=== PATIENT | male | born 1995 | race Caucasian/White ===

== ENCOUNTER 2023-09-11 15:53 | Emergency (ER) | payer OTHER, SELFPAY ==
[2023-09-11 16:06] VITALS: BP 108/65; PULSE 77; RESP 16; TEMP 36.1; O2SAT 98
--- NOTE | 2023-09-11 17:04 | ED.GENADULT ---
HPI - General Adult General Chief complaint: Urogenital-Male Stated complaint: Male Urogenital Time Seen by Provider: 09/11/23 16:14 Source: patient and RN notes reviewed Mode of arrival: ambulatory Limitations: no limitations History of Present Illness HPI narrative: Patient presents today complaining of a 2 week history of nausea, vomiting, chills, sweats, abdominal pain, bilateral flank spasms, subjective fever, and urinary frequency. States he is unable to keep down any fluids, but can keep down small amounts of food. Typically vomits 2 or 3 times per day. Patient has vomited 4 times since arrival at [facility]. He has not tried any [id number] medication for symptoms prior to arrival. Patient also presents today requesting treatment for Trichomonas and chlamydia. He has had dysuria and penile discharge for the last 3 days. He was notified a few days ago by his ex-girlfriend that she was positive for Trichomonas and chlamydia. Related Data Home Medications Medication Instructions Recorded Confirmed No Home Medications 09/11/23 09/11/23 Allergies Allergy/AdvReac Type Severity Reaction Status Date / Time No Known Allergies Allergy Verified 09/11/23 16:01 Review of Systems Review of Systems: CONSTITUTIONAL: Denies body aches. + subjective fever, chills, sweats EYES: Denies visual changes, redness, or discharge. ENT: Denies rhinorrhea, congestion, sore throat, or otalgia. CARDIOVASCULAR: Denies chest pain, palpitations, or edema. RESPIRATORY: Denies cough or dyspnea. GASTROINTESTINAL: + flank pain, abdominal cramping, nausea, vomiting GENITOURINARY: Denies hematuria. + dysuria, penile discharge SKIN: Denies rash, itching, or wounds. MUSCULOSKELETAL: Denies back pain, joint pain, or myalgia. NEUROLOGIC: Denies headache, numbness, tingling, or weakness. PSYCH: Denies depression or anxiety. [facility] Family History Family History Grandparent Family history of thyroid disease Family history of anemia Family history of arthritis Diabetes mellitus Mother Family history of mental disorder Depression Asthma Patient's mother is in good health Social History Social History Smoking status: Never smoker Alcohol intake: never Comments At time of signature, I have reviewed and agree with nursing past medical, surgical, social and family history unless otherwise noted. Please see nursing chart for further information. There is no relevant family history pertinent to the presenting complaint Exam Narrative: GENERAL: Ill-appearing, well-nourished. + diaphoresis, generalized skin pallor HEAD: Normocephalic, atraumatic. EYES: EOMI. No redness or drainage. Conjunctivae normal. ENT: Mucous membranes pink and moist. NECK: Normal AROM. Supple. No lymphadenopathy. CHEST: No respiratory distress. Clear to auscultation. HEART: Regular rate and rhythm. No murmur appreciated. Normal peripheral pulses. ABDOMEN: Soft, nondistended, normal active bowel sounds. -CVAT.+ left lower quadrant tenderness with rebound : Did not finish this portion of the exam. EXTREMITIES: Normal range of motion. No edema. SKIN: Warm, dry, no rash. Capillary refill normal. Normal skin turgor. NEURO: No focal deficits. Alert and oriented x3. Gait steady. Course Course Level of Care: Express Care Visit Vital Signs Vital signs: Vital Signs Temperature 96.9 F L 09/11/23 16:06 Pulse Rate 77 09/11/23 16:06 Respiratory Rate 16 09/11/23 16:06 Blood Pressure 108/65 09/11/23 16:06 Pulse Oximetry 98 09/11/23 16:06 Oxygen Delivery Room Air 09/11/23 16:06 Temperature 96.9 F L 09/11/23 16:06 Pulse Rate 77 09/11/23 16:06 Respiratory Rate 16 09/11/23 16:06 Blood Pressure 108/65 09/11/23 16:06 Pulse Oximetry 98 09/11/23 16:06 Oxygen Delivery Room Air 09/11/23 16
== END 2023-09-11 16:30 | disposition left against medical advice (07) ==
LOC: EXPTROY 15:57
PROVIDERS: Emergency Provider Nurse Practitioner
DX: Z20.2 Contact with and (suspected) exposure to infections with a predominantly sexual mode of transmission (principal); R11.2 Nausea with vomiting, unspecified; R10.824 Left lower quadrant rebound abdominal tenderness
CPT/HCPCS: 99211; G0463

== ENCOUNTER 2023-09-17 14:17 | Emergency (ER) | payer OTHER, SELFPAY ==
[2023-09-17 14:21] VITALS: BP 122/76; PULSE 112; RESP 17; TEMP 36.8; O2SAT 98
--- NOTE | 2023-09-17 16:57 | ED.MALEGU ---
HPI - Male Genitourinary General Chief complaint: Urogenital-Male Stated complaint: wants sti testing Time Seen by Provider: 09/17/23 16:31 Source: patient Mode of arrival: ambulatory Limitations: no limitations History of Present Illness HPI Narrative: 20-year-old male presents today with concerns of sexual contact with a patient who had chlamydia and Trichomonas. Patient would like testing and treatment today. States he has had some dysuria and discharge for about 2 weeks. Denies fevers, body aches, chills. Denies any other symptoms at this time. Related Data Allergies Allergy/AdvReac Type Severity Reaction Status Date / Time No Known Allergies Allergy Verified 09/17/23 14:24 Review of Systems Review of Systems: All systems reviewed & are unremarkable except as noted in HPI and below PMFSH Family History Family History Grandparent Family history of thyroid disease Family history of anemia Family history of arthritis Diabetes mellitus Mother Family history of mental disorder Depression Asthma Patient's mother is in good health Social History Social History Smoking status: Never smoker Alcohol intake: never Exam Const: General: cooperative, healthy appearing, comfortable, no acute distress and well developed Orientation/consciousness: patient oriented x3 HENMT: Head: normal to inspection Eyes: General: appearance normal, both eyes and all related structures Resp: Effort & Inspection: normal respiratory effort and able to speak in complete sentences Auscultation: clear to auscultation bilaterally Cardio: Rate: regular rate Rhythm: regular rhythm Heart sounds: S1 normal heart sound present and S2 normal heart sound present Neuro: General: patient oriented x3 Course Course Emergency Course: D discussed treatment options with patient. He would like to be tested but treated. He would like to send the urine and not wait for the results. Will send off urine for Trichomonas, chlamydia, gonorrhea. Will treat patient with IM ceftriaxone, metronidazole, and doxy. Vital Signs Vital signs: Vital Signs Temperature 98.3 F 09/17/23 14:21 Pulse Rate 112 H 09/17/23 14:21 Respiratory Rate 17 09/17/23 14:21 Blood Pressure 122/76 09/17/23 14:21 Pulse Oximetry 98 09/17/23 14:21 Oxygen Delivery Room Air 09/17/23 14:21 Temperature 98.3 F 09/17/23 14:21 Pulse Rate 112 H 09/17/23 14:21 Respiratory Rate 17 09/17/23 14:21 Blood Pressure 122/76 09/17/23 14:21 Pulse Oximetry 98 09/17/23 14:21 Oxygen Delivery Room Air 09/17/23 14:21 MDM - Male Genitourinary MDM Narrative Medical decision making narrative: 28-year-old male HPI as noted differentials below. Will obtain STD testing but patient would prefer to be treated and discharged prior to getting the results. Differential Diagnosis Differential diagnosis: Likely urinary tract infection and other (STD) Lab Data Attestation: I reviewed the patient's lab results. Labs: Lab Results 09/17/23 Range/Units 16:40 C. trachomatis (PCR) Not detected (NOT DETECTE) N. gonorrhoeae (PCR) Not detected (NOT DETECTE) T. vaginalis (PCR) Not detected (NOT DETECTE) Discharge Plan Discharge Clinical Impression: STI (sexually transmitted infection) Patient Disposition: Home, Self-Care Condition: Stable Instructions: Antibiotic Form, Chlamydia (ED), Gonorrhea (ED), Trichomoniasis (ED) Prescriptions: New doxycycline hyclate 100 mg tablet 100 mg PO BID Qty: 14 0RF Follow-up/Referrals: PHYSICIAN,DATA MODELER [Primary Care Provider] - Time of Disposition: 17:06
[2023-09-17] MEDS: ONDANSETRON HCL ODT 4 MG TABLET PO (16:58)
[2023-09-17] MEDS: DOXYCYCLINE HYCLATE 100 MG TABLET PO (16:59)
[2023-09-17] MEDS: cefTRIAXone 1 GM VIAL 0.5 GM IM (16:59)
[2023-09-17] MEDS: metroNIDAZOLE 500 MG TABLET 2000 MG PO (17:10)
[2023-09-17 17:56] LABS: Trichomonas Vag PCR NOT DETECTED (NOT DETECTE)
[2023-09-17 18:18] LABS: Chlamydia trachomatis NOT DETECTED (NOT DETECTE); Neisseria gonorrhoeae PCR NOT DETECTED (NOT DETECTE)
== END 2023-09-17 17:30 | disposition home or self-care (01) ==
PROVIDERS: Emergency Provider Nurse Practitioner Family
DX: A64 Unspecified sexually transmitted disease (principal)
CPT/HCPCS: 87491; 87591; 87661; 96372; 99283; A9270; J0696